=== PATIENT | female | born 1950 | race Caucasian/White ===

== ENCOUNTER 2019-02-18 12:10 | Emergency (ER) | payer MEDICARE, OTHER, SELFPAY ==
[2019-02-18 12:20] VITALS: BP 114/56; PULSE 72; RESP 24; TEMP 36.8; O2SAT 97; BMI 35.4
--- NOTE | 2019-02-18 12:50 | ED.RECABL ---
HPI - Recheck/Abnormal Lab/Rx General Chief Complaint: Recheck/Abnormal Lab/Rx Stated Complaint: Stomach pain hard time breathing Time Seen by Provider: 02/18/19 12:26 Source: patient Mode of arrival: wheelchair Limitations: no limitations History of Present Illness HPI narrative: 68-year-old female with multiple medical problems. Has prescribed multiple medications to include pain medications and psychiatric medications. She is visiting the area from [place]. She is here with her friend. Her friend states that she has not had her medications for the past week because she ran out. She has tried to contact a family member back in [place] he was supposed to have medications mailed to her but has not received them up to this point. Patient describes no new symptoms and is here for medication refill. Related Data Home Medications Medication Instructions Recorded Confirmed clonazepam 1 mg PO BID 02/18/19 02/18/19 hydroxyzine HCl 25 mg PO BID 02/18/19 02/18/19 oxycodone-acetaminophen 1 tab PO QID 02/18/19 02/18/19 quetiapine 300 mg PO BEDTIME 02/18/19 02/18/19 risperidone 2 mg PO BID 02/18/19 02/18/19 trihexyphenidyl 5 mg PO BID 02/18/19 02/18/19 Previous Rx's Medication Instructions Recorded clonazepam 1 mg PO BID #14 tab 02/18/19 hydroxyzine HCl 25 mg PO BID #14 tab 02/18/19 oxycodone-acetaminophen [Percocet] 1 tab PO Q6H PRN 7 Days #28 tab 02/18/19 quetiapine 300 mg PO BEDTIME #7 tab 02/18/19 risperidone 2 mg PO BID #14 tab 02/18/19 trihexyphenidyl 5 mg PO BID #14 tab 02/18/19 Allergies Allergy/AdvReac Type Severity Reaction Status Date / Time No Known Drug Allergies Allergy Verified 02/18/19 12:22 Review of Systems Constitutional Denies fever(s) Cardiovascular Denies chest pain and Denies dyspnea Respiratory Denies dyspnea Gastrointestinal Gastrointestinal: Reports abdominal pain Integumentary/Breasts Denies rash Psychiatric Reports anxiety PFSH Medical History Anxiety (Acute) Chronic pain (Acute) Social History Smoking Status: Current every day smoker Social History Smoking Status: Current every day smoker Exam Initial Vital Signs Initial Vital Signs: Vital Signs Temperature 98.2 F 02/18/19 12:20 Pulse Rate 72 02/18/19 12:20 Respiratory Rate 24 02/18/19 12:20 Blood Pressure 114/56 L 02/18/19 12:20 Pulse Oximetry 97 02/18/19 12:20 Const General: cooperative Orientation: alert, awake and oriented x3 HENMT Head: normal to inspection and normocephalic Resp Effort & Inspection: normal respiratory effort Cardio Rate: regular rate GI Inspection: non-distended Skin Lesions: no lesions Rashes: no rashes Neuro General: alert and awake Cognition: normal cognition Psych Appearance: grossly normal and well kempt Course Vital Signs - 8 hr 02/18/19 12:20 Temperature 98.2 F Pulse Rate 72 Respiratory Rate 24 Blood Pressure 114/56 L Pulse Oximetry 97 MDM - Recheck/Abnormal Lab/Rx MDM Narrative Medical decision making narrative: Patient reports no new symptoms she is just here for medication refill. I did refill 1 week of all of her medications. She had these pill bottles with her. Informed her that she needed to talk with her family member or her primary doctor to obtain more medications. Informed her that the emergency department could not/would not refill any of her medications further. Both her and her friend expressed understanding and agreement with plan. Discharge Plan Departure Patient Disposition: Home Clinical Impression: Encounter for medication refill Discharge Date/Time: 02/18/19 13:06 Interventions: ED Discharge Assessment Last Done: 02/18/19 13:05 Instructions: Dos and Don'ts for Prescription Medications, DI for Taking Pain Medication Activity Restrictions/Additional Instructions: The emergency department cannot refill your long-term medications for any longer than what we have today. You need to contact your social worker masters/primary provider back in [place] to decide what to do next. Prescriptions: New oxycodone-acetaminophen [Percocet] 10-325 mg tablet 1 tab PO Q6H PRN (Reason: pain) 7 Days Qty: 28 RF: 0 quetiapine 300 mg tablet 300 mg PO BEDTIME Qty: 7 RF: 0 clonazepam 1 mg tablet 1 mg PO BID Qty: 14 RF: 0 risperidone 2 mg tablet 2 mg PO BID Qty: 14 RF: 0 trihexyphenidyl 5 mg tablet 5 mg PO BID Qty: 14 RF: 0 hydroxyzine HCl 25 mg tablet 25 mg PO BID Qty: 14 RF: 0 No Action quetiapine 300 mg Tablet 300 mg PO BEDTIME RF: 0 clonazepam 1 mg Tablet 1 mg PO BID RF: 0 risperidone 2 mg Tablet 2 mg PO BID RF: 0 oxycodone-acetaminophen 10-325 mg Tablet 1 tab PO QID RF: 0 trihexyphenidyl 5 mg Tablet 5 mg PO BID RF: 0 hydroxyzine HCl 25 mg Tablet 25 mg PO BID RF: 0
== END 2019-02-18 13:06 | disposition home or self-care (01) ==
PROVIDERS: Emergency Provider Emergency Medicine
DX: R10.9 Unspecified abdominal pain (principal); R06.00 Dyspnea, unspecified; Z76.0 Encounter for issue of repeat prescription
CPT/HCPCS: 99283